=== PATIENT | female | born 1935 | race Caucasian/White ===

== ENCOUNTER 2017-07-27 08:54 | Emergency (ER) | payer MEDICARE, BC ==
[2017-07-27 09:17] VITALS: BP 124/67
--- NOTE | 2017-07-27 10:13 | RAD ---
Indication: Left elbow pain. 4 views of left elbow demonstrates suggestion of a fracture through the radial head. Anterior fat pad sign is noted with suggestion of joint effusion. IMPRESSION: Nondisplaced fracture radial head with joint effusion.
--- NOTE | 2017-07-27 10:25 | UC ---
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 Negative: Redness , Bruising, Fever, Numbness/Tingling - Allergies/Home Medications Allergies/Adverse Reactions: Allergies Allergy/AdvReac Type Severity Reaction Status Date / Time Sulfa (Sulfonamide Allergy Severe swelling, Verified 07/27/17 09:17 Antibiotics) ill Home Medications: Home Medications Carbidopa/Levodopa [Carbidopa-Levodopa 25-100 Tab] 1 tab PO DAILY 07/27/17 [ History Confirmed 07/27/17] DULoxetine DR CAP* [Cymbalta CAP*] 20 mg PO DAILY 07/27/17 [History Confirmed ] Ferrous Sulfate [Iron High-Potency] 325 mg PO DAILY 07/27/17 [History Confirmed 07/27/17] Furosemide TAB* [Lasix TAB*] 20 mg PO DAILY 07/27/17 [History Confirmed 07/27/17 ] Lansoprazole CAP (NF) [Prevacid CAP (NF)] 15 mg PO DAILY 07/27/17 [History Confirmed 07/27/17] Latanoprost 0.005%* [Xalatan 0.005%*] 1 drop RIGHT EYE QPM 07/27/17 [History Confirmed 07/27/17] Methenamine Mandelate 1 gm PO DAILY 07/27/17 [History Confirmed 07/27/17] clonazePAM TAB(*) [Klonopin TAB(*)] 0.5 mg PO DAILY 07/27/17 [History Confirmed 07/27/17] lamoTRIgine TAB(*) [Lamictal TAB(*)] 25 mg PO DAILY 07/27/17 [History Confirmed 07/27/17] PMH/Surg Hx/FS Hx/Imm Hx - Additional Past Medical History Additional PMH: parkinson's disease, [place] - Surgical History Surgical History: Yes Surgery Procedure, Year, and Place: bilat hip replacements - Family History Known Family History: Positive: Hypertension - Social History Alcohol Use: None Substance Use Type: None Smoking Status (MU): Never Smoked Tobacco Review of Systems Constitutional: Negative Skin: Negative Eyes: Negative ENT: Negative Respiratory: Negative Is Patient Immunocompromised?: No All Other Systems Reviewed And Are Negative: Yes Physical Exam Triage Information Reviewed: Yes Appearance: Well-Appearing, No Pain Distress, Well-Nourished Vital Signs: Initial Vital Signs Temp 98.3 F 07/27/17 08:59 Pulse 81 07/27/17 08:59 Resp 16 07/27/17 08:59 BP 124/67 07/27/17 08:59 Pulse Ox 97 07/27/17 08:59 Vital Signs Reviewed: Yes Eyes: Positive: Conjunctiva Clear ENT: Positive: Normal ENT inspection, Hearing grossly normal, Pharynx normal, Pharyngeal erythema Neck exam: Normal Neck: Positive: Supple, Nontender, No Lymphadenopathy Respiratory: Positive: Chest non-tender, Lungs clear, Normal breath sounds Cardiovascular: Positive: RRR, No Murmur, Pulses Normal Musculoskeletal: Positive: Strength Intact, Other: - LEFT ELBOW : + MILD SWELLING, RADIAL HEAD TENDERNESS, LIMITED ROM ON FLEXION AND EXTENSION , LIMITED STRENGTH Diagnostics - Laboratory Diagnostic Studies Completed/Ordered: XRAY LEFT ELBOW: IMPRESSION: Nondisplaced fracture radial head with joint effusion. Elbow Pain Course/Dx - Differential Dx/Diagnosis Provider Diagnoses: FRACTURE LEFT RADIAL HEAD Discharge - Sign-Out/Discharge Documenting (check all that apply): Discharge - Discharge Plan Condition: Stable Disposition: HOME Patient Education Materials: Elbow Fracture (ED) Referrals: hCung Bo MD [Medical Doctor] - 2 Days Chana German PA [Primary Care Provider] - - Billing Disposition and Condition Condition: STABLE Disposition: HOME
== END 2017-07-27 10:27 | disposition home or self-care (01) ==
LOC: UCCORT 08:54
DX: S52.125A Nondisplaced fracture of head of left radius, initial encounter for closed fracture (principal); W19.XXXA Unspecified fall, initial encounter; Y93.9 Activity, unspecified; Y92.9 Unspecified place or not applicable; Z88.2 Allergy status to sulfonamides; G20 Parkinson's disease; Z96.643 Presence of artificial hip joint, bilateral
CPT/HCPCS: 99202; G0463